=== PATIENT | female | born 1975 | race American Indian/Alaskan Native ===

== ENCOUNTER 2020-08-16 10:20 | Emergency (ER) | payer BC, OTHER ==
[2020-08-16 11:37] VITALS: BP 173/80
--- NOTE | 2020-08-16 12:14 | Emergency Department Report ---
ED Lower Extremity HPI - General Chief Complaint: Extremity Injury, Lower Stated Complaint: LT ANKLE INJURY Time Seen by Provider: 08/16/20 12:08 Source: patient Mode of arrival: Wheelchair Limitations: Physical Limitation - History of Present Illness Initial Comments: Patient is a 44-year-old female presents emergency room with complaints of left ankle and foot pain that began earlier today. Patient states that she was getting off the elevator and tripped and had an inversion injury of her left ankle. She states that she has not been ambulatory since then secondary to pain. She denies ever injuring the past. She denies any numbness or weakness. Past medical history of hypertension, lupus, diabetes. No medication allergies. - Related Data Previous Rx's Medication Instructions Recorded Last Taken Type HYDROcodone/APAP 5-325 [[place] 1 each PO Q6HR PRN #12 tablet 08/16/20 Unknown Rx 5/325] Naproxen [EC-Naproxen] 500 mg PO BID PRN #20 tablet. 08/16/20 Unknown Rx Allergies Allergy/AdvReac Type Severity Reaction Status Date / Time No Known Allergies Allergy Unverified 06/10/14 08:44 ED Review of Systems ROS: Stated complaint: LT ANKLE INJURY Other details as noted in HPI Comment: All other systems reviewed and negative ED Past Medical Hx - Past Medical History Additional medical history: lupus - Surgical History Additional Surgical History: GB removed - Medications Home Medications: Home Medications Medication Instructions Recorded Confirmed Last Taken Type HYDROcodone/APAP 5-325 [[place] 1 each PO Q6HR PRN #12 tablet 08/16/20 Unknown Rx 5/325] Naproxen [EC-Naproxen] 500 mg PO BID PRN #20 tablet. 08/16/20 Unknown Rx ED Physical Exam - General Limitations: Physical Limitation General appearance: alert, in no apparent distress - Head Head exam: Present: atraumatic, normocephalic - Eye Eye exam: Present: normal appearance - ENT ENT exam: Present: mucous membranes moist - Respiratory Respiratory exam: Absent: respiratory distress, accessory muscle use - Extremities Exam Extremities exam: Present: other (ttp to the left lateral foot and left lateral malleolus, small edema present, FROM of the LLE, pain with flexion and internal rotation, no deformity, neurovasculalry intact) - Neurological Exam Neurological exam: Present: alert, oriented X3 - Psychiatric Psychiatric exam: Present: normal affect, normal mood - Skin Skin exam: Present: warm, dry, intact ED Course Vital Signs 08/16/20 08/16/20 11:35 14:53 Temperature 98.2 F Pulse Rate 82 Respiratory 18 20 Rate Blood Pressure 173/80 [Right] O2 Sat by Pulse 98 Oximetry ED Lower Extremity MDM - Radiology Data Radiology results: report reviewed Ordering Physician: SRIKANTH SABA Date of Service: 08/16/20 Procedure(s): XR ankle 3+V LT Accession Number(s): [id number] cc: SRIKANTH SABA Fluoro Time In Minutes: LEFT ANKLE 3 VIEW(S) INDICATION / CLINICAL INFORMATION: fall, left ankle/foot pain COMPARISON: None available. FINDINGS: BONES / JOINT(S): Acute minimally displaced fracture at the base of the fifth metatarsal. No definite extension to the articular surface. Morphology suggestive of [place] fracture No significant arthritis. SOFT TISSUES: Mild-moderate lateral foot swelling. ADDITIONAL FINDINGS: None. Signer Name: Marin Vidal MD Signed: 08/16/2020 12:50 PM Workstation Name: [id number] Transcribed By: Dictated By: MARIN VIDAL III Electronically Authenticated By: MARIN VIDAL III Signed Date/Time: 08/16/20 1250 DD/ 1247 TD/TT: Print Ordering Physician: SRIKANTH SABA Date of Service: 08/16/20 Procedure(s): XR ankle 3+V LT Accession Number(s): [id number] cc: SRIKANTH SABA Fluoro Time In Minutes: LEFT ANKLE 3 VIEW(S) INDICATION / CLINICAL INFORMATION: fall, left ankle/foot pain COMPARISON: None available. FINDINGS: BONES / JOINT(S): Acute minimally displaced fracture at the base of the fifth metatarsal. No definite extension to the articular surface. Morphology suggestive of [place] fracture No significant arthritis. SOFT TISSUES: Mild-moderate lateral foot swelling. ADDITIONAL FINDINGS: None. Signer Name: Marin Vidal MD Signed: 08/16/2020 12:50 PM Workstation Name: [id number] Transcribed By: Dictated By: MARIN VIDAL III Electronically Authenticated By: MARIN VIDAL III Signed Date/Time: 08/16/20 1250 DD/ 1247 TD/TT: Print - Medical Decision Making Patient is a 44-year-old female presents emergency room with complaints of left ankle and foot pain that began earlier today. Patient states that she was getting off the elevator and tripped and had an inversion injury of her left ankle. She states that she has not been ambulatory since then secondary to pain. She denies ever injuring the past. She denies any numbness or weakness. Past medical history of hypertension, lupus, diabetes. No medication allergies. Vital signs stable. On exam:ttp to the left lateral foot and left lateral malleolus, small edema present, FROM of the LLE, pain with flexion and internal rotation, no deformity, neurovasculalry intact. X-ray left foot and ankle: BONES / JOINT(S): Acute minimally displaced fracture at the base of the fifth metatarsal. No definite extension to the articular surface. Morphology suggestive of [place] fracture No significant arthritis. SOFT TISSUES: Mild-moderate lateral foot swelling. ADDITIONAL FINDINGS: None. Discussed all results with patient and answered questions. Patient given pain medication while in the emergency department as she did not drive and symptoms improved. Patient placed in splint by dispatcher service or work and remained neurovascularly intact. Patient given crutches. Discussed the importance of orthopedic follow-up. Patient given prescription for [place] and naproxen. Advised patient Please take medication as prescribed as needed. Do not drive or operate machinery while taking severe pain medication. Do not bear weight on the foot. Follow-up with orthopedic doctor. Return to emergency room for new or worsening symptoms. Critical care attestation.: If time is entered above; I have spent that time in minutes in the direct care of this critically ill patient, excluding procedure time. ED Disposition Clinical Impression: Fracture of 5th metatarsal Qualifiers: Encounter type: initial encounter Fracture type: closed Fracture alignment: nondisplaced Laterality: left Qualified Code(s): S92.355A - Nondisplaced fracture of fifth metatarsal bone, left foot, initial encounter for closed fracture Disposition: DC-01 TO HOME OR SELFCARE Is pt being admited?: No Does the pt Need Aspirin: No Condition: Stable Instructions: Metatarsal Fracture Additional Instructions: Please take medication as prescribed as needed. Do not drive or operate machinery while taking severe pain medication. Do not bear weight on the foot. Follow-up with orthopedic doctor. Return to emergency room for new or worsening symptoms. Prescriptions: Naproxen [EC-Naproxen] 500 mg PO BID PRN #20 tablet. PRN Reason: pain HYDROcodone/APAP 5-325 [[place] 5/325] 1 each PO Q6HR PRN #12 tablet PRN Reason: Pain , Severe (7-10) [facility]5 [facility] MARIN MONTES DE OCA MD [Staff Physician] - 3-5 Days [facility] - 3-5 Days Time of Disposition: 13:44 Print Language: YEMENI
--- NOTE | 2020-08-16 13:10 | XRay Report ---
HISTORY:fall, left ankle/foot pain COMPARISON: None. TECHNIQUE: AP lateral and obliques views were obtained FINDINGS: Bones: Transverse fracture proximal fifth metatarsal noted. Joint spaces: Maintained. Soft tissues: No significant abnormality. Additional findings: None. IMPRESSION: 1. Fracture fifth metatarsal proximal aspect Signer Name: Bakari Guan MD Signed: 08/16/2020 12:46 PM Workstation Name: [id number]
--- NOTE | 2020-08-16 13:13 | XRay Report ---
LEFT ANKLE 3 VIEW(S) INDICATION / CLINICAL INFORMATION: fall, left ankle/foot pain COMPARISON: None available. FINDINGS: BONES / JOINT(S): Acute minimally displaced fracture at the base of the fifth metatarsal. No definite extension to the articular surface. Morphology suggestive of [place] fracture No significant arthritis . SOFT TISSUES: Mild-moderate lateral foot swelling. ADDITIONAL FINDINGS: None. Signer Name: Marin Vidal MD Signed: 08/16/2020 12:50 PM Workstation Name: [id number]
[2020-08-16] MEDS ORDERED: HYDROcodone/ACETAMINOPHEN 5-325 MG TAB PO ONE (13:43)
== END 2020-08-16 15:30 | disposition home or self-care (01) ==
LOC: ED 10:20
DX: S92.355A Nondisplaced fracture of fifth metatarsal bone, left foot, initial encounter for closed fracture (principal); Z98.890 Other specified postprocedural states; Z79.899 Other long term (current) drug therapy; W18.49XA Other slipping, tripping and stumbling without falling, initial encounter; Y93.89 Activity, other specified; Y92.89 Other specified places as the place of occurrence of the external cause; Y99.8 Other external cause status